=== PATIENT | female | born 1945 | race Caucasian/White ===

== ENCOUNTER 2022-02-12 09:07 | Outpatient (RCR) | payer MEDICARE, BC | END 2022-02-19 | disposition home or self-care (01) | LOC: PT | DX: M54.42 Lumbago with sciatica, left side (principal); G89.29 Other chronic pain ==

== ENCOUNTER 2023-04-22 08:00 | Outpatient (RCR) | payer MEDICARE, BC | END 2023-05-21 | disposition home or self-care (01) | LOC: PT | DX: M25.511 Pain in right shoulder (principal) ==

== ENCOUNTER 2023-05-26 08:00 | Outpatient (RCR) | payer MEDICARE, BC | END 2023-06-21 | disposition home or self-care (01) | LOC: PT | DX: M25.511 Pain in right shoulder (principal) ==